=== PATIENT | male | born 1960 | race Caucasian/White ===

== ENCOUNTER 2017-03-09 13:03 | Day surgery (SDC) | payer BC ==
[~2017-03-09] VITALS: Ht 172.7 cm; Wt 81.4 kg
[2017-03-09 13:48] VITALS: Ht 172.7 cm; Wt 81.4 kg
[2017-03-09] MEDS ORDERED: METOPROLOL (13:58)
[2017-03-09] MEDS ORDERED: ASPIRIN (13:58)
[2017-03-09] MEDS ORDERED: HYDROCHLOROTHIAZIDE (13:58)
[2017-03-09] MEDS ORDERED: METFORMIN (13:58)
[2017-03-09] MEDS ORDERED: NORVASC (13:58)
[2017-03-09] MEDS ORDERED: LOSARTAN (13:58)
[2017-03-09 14:53] VITALS: BP 135/72; PULSE 61; RESP 21
--- NOTE | 2017-03-09 15:13 | OPPN ---
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
[2017-03-09] MEDS ORDERED: MIDAZOLAM 1 MG/ML 2 ML INJ ONE ×2 (15:19)
[2017-03-09] MEDS ORDERED: FENTAnyl 50 MCG/ML VIAL ONE (15:19)
[2017-03-09 15:30] VITALS: BP 104/73; RESP 14
--- NOTE | 2017-03-12 19:29 | GILP ---
DATE OF PROCEDURE: 03/09/2017 PREOPERATIVE DIAGNOSIS: Screening colonoscopy. POSTOPERATIVE DIAGNOSIS: Small polyp in the sigmoid colon, otherwise normal. DESCRIPTION OF PROCEDURE: The patient was put in left lateral decubitus after obtaining informed co nsent, sedated with Versed 4 mg, fentanyl 100 mcg, and total moderate sedation time is 15 minutes. Advanced Olympus video colonoscope. Scope was advanced all the way to cecum. Cecum, ascending colon, transverse colon, descending colon unremarkable. In the sigmoid colon, a small polyp was noted. This was removed by colon biopsy for ceps completely and sent to histopathology. It was a very diminutive polyp. Rectum was unremarkabl e, including retroflexion. Upon removal of scope, patient had no complication. A few diverticula n oted in the left colon. RECOMMENDATION: Await for biopsy report, follow up as outpatient, and repeat colonoscopy in 5 years . Dictated By: CYNTHIA CANALES Conf#: [id number] DID#: [id number]
== END 2017-03-09 16:38 | disposition home or self-care (01) ==
LOC: GIL 13:03
PROVIDERS: ATTEND Internal Medicine
DX: Z12.11 Encounter for screening for malignant neoplasm of colon (principal); D12.5 Benign neoplasm of sigmoid colon; E11.9 Type 2 diabetes mellitus without complications; I10 Essential (primary) hypertension; Z86.73 Personal history of transient ischemic attack (TIA), and cerebral infarction without residual deficits
CPT/HCPCS: 45380; 82962; J2250; J3010; Z7610